=== PATIENT | male | born 1985 | race Caucasian/White ===

== ENCOUNTER 2020-09-09 07:45 | Emergency (ER) | payer OTHER ==
[~2020-09-09] VITALS: Ht 177.8 cm; Wt 100.0 kg
[2020-09-09 07:55] VITALS: TEMP 97.3
[2020-09-09 09:43] VITALS: BP 112/72; PULSE 75
== END 2020-09-09 09:44 | disposition home or self-care (01) ==
LOC: COL.ER 07:45
DX: M79.672 Pain in left foot (principal)
CPT/HCPCS: J1885